=== PATIENT | female | born 1975 | race American Indian/Alaskan Native ===

== ENCOUNTER 2018-12-04 17:36 | Emergency (ER) | payer BC, OTHER ==
[2018-12-04 17:39] VITALS: BMI 36.9
[2018-12-04 17:46] VITALS: O2SAT 100
--- NOTE | 2018-12-04 18:24 | C.PDOC ---
History Of Present Illness 43 y/o female presents to the ED for evaluation of recurring heavy menses x 3 weeks. Patient reports history of fibroids. Patient reports history of similar prior episode one year ago. Patient is currently not on control pulls. Patient reports occasional pelvic cramping, generalized weakness. Denies near syncope. RECUR HEAVY MENSES X 3 WEEKS. HO FIBROIDS. HO SIM PRIOR EPISODE 1 YR AGO. CURRENTLY NOT ON BCP. OCC PELVIC CRAMPING. GEN WEAKNESS. NO NEAR SYNCOPE EXAM NONTOXIC HEENT NO PALLOR ABD NEG MDM CBC, PREG. PT ADVISED NEED FOR OBGYN FU, POSSIBLE BCP [place] Time Seen by Provider: 12/04/18 18:01 Chief Complaint (Nursing): Female Genitourinary History Per: Patient History/Exam Limitations: no limitations Onset/Duration Of Symptoms: Other (3 weeks ) Current Symptoms Are (Timing): Still Present Additional History Per: Patient Abnormal Vaginal Bleeding: Yes Past Medical History Reviewed: Historical Data, Nursing Documentation, Vital Signs Vital Signs: Last Vital Signs Temp 97.7 F 12/04/18 17:42 Pulse 76 12/04/18 17:42 Resp 17 12/04/18 17:42 BP 154/84 H 12/04/18 17:42 Pulse Ox 100 12/04/18 17:42 - Medical History PMH: HTN Surgical History: No Surg Hx - [facility] UTERINE LES DESTRUCT NEC (06/02/13) Family History: States: Unknown Family Hx - Social History Hx Alcohol Use: Yes Hx Substance Use: No - Immunization History Hx Tetanus Toxoid Vaccination: No Hx Influenza Vaccination: No Hx Pneumococcal Vaccination: No Review Of Systems Constitutional: Positive for: Weakness. Negative for: Fever, Chills Gastrointestinal: Negative for: Nausea, Vomiting Genitourinary: Positive for: Vaginal Bleeding Skin: Negative for: Rash, Lesions, Jaundice, Bruising Physical Exam - Physical Exam Appears: Non-toxic, No Acute Distress Skin: Normal Color, Warm, Dry, No Pale Head: Atraumatic, Normacephalic Eye(s): bilateral: Normal Inspection Oral Mucosa: Moist Neck: Supple Chest: Symmetrical, No Deformity, No Tenderness Cardiovascular: Rhythm Regular, No Murmur Respiratory: Normal Breath Sounds, No Rales, No Rhonchi, No Wheezing Gastrointestinal/Abdominal: Soft, No Tenderness, No Guarding, No Rebound Extremity: Normal ROM, Capillary Refill (less than 2 secon ds ) Neurological/Psych: Oriented x3, Normal Speech, Normal Cognition ED Course And Treatment - Laboratory Results Result Diagrams: 12/04/18 18:37 Urine POC: Negative O2 Sat by Pulse Oximetry: 100 (on RA ) Pulse Ox Interpretation: Normal Reevaluation Time: 19:41 Reassessment Condition: Improved - Physician Consult Information Time Consulting Physician Contacted: 19:41 Physician Contacted: Constance Hays Outcome Of Conversation: 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 NO RECOMMENDED MEDICATION @ THIS TIME. PT NEEDS OBGYN OUTPT FU Medical Decision Making Medical Decision Making: CBC, PREG. PT ADVISED NEED FOR OBGYN FU, POSSIBLE BCP [place] Disposition Counseled Patient/Family Regarding: Studies Performed, Diagnosis, Need For Followup, Rx Given - Disposition Referrals: YOUR,OBGYN [Other] Disposition: HOME/ ROUTINE Disposition Time: 19:43 Condition: IMPROVED Instructions: Heavy Periods (DC) Forms: Work/School/Gym Excuse, [facility] (Chinese) - Clinical Impression Clinical Impression: Menorrhagia - Scribe Statement The provider has reviewed the documentation as recorded by the Scribe (Adelaida Bocanegra) Provider Attestation: All medical record entries made by the Scribe were at my direction and personally dictated by me. I have reviewed the chart and agree that the record accurately reflects my personal performance of the history, physical exam, medical decision making, and the department course for this patient. I have also personally directed, reviewed, and agree with the discharge instructions and disposition.
[2018-12-04 18:40] LABS: HEMOGLOBIN 13.6 g/dL (11.0-16.0); MEAN CELL VOLUME 84.6 fL (81.0-99.0); MEAN CORPUSCULAR HEMOGLOBIN 28.2 pg (27.0-31.0); MEAN CORPUSCULAR HGB CONC 33.3 g/dL (33.0-37.0); MEAN PLATELET VOLUME 8.4 fL (7.2-11.7); RBC 4.83 Mil/uL (3.80-5.20); RED CELL DISTRIBUTION WIDTH 14.2 % (11.5-14.5); WHITE BLOOD COUNT 5.5 K/uL (4.8-10.8)
[2018-12-04 20:01] VITALS: BP 140/79; PULSE 75; RESP 16; TEMP 97.8
== END 2018-12-04 20:00 | disposition home or self-care (01) ==
LOC: C.ER 17:36
DX: N92.0 Excessive and frequent menstruation with regular cycle (principal)